=== PATIENT | female | born 1980 | race Caucasian/White ===

== ENCOUNTER 2021-06-11 12:47 | Emergency (ER) | payer MEDICAID ==
[2021-06-11] MEDS ORDERED: predniSONE 20 MG Tab PO ONE (13:55)
[2021-06-11] MEDS ORDERED: Albuterol 8 GM Inhaler INH ONE (14:00)
--- NOTE | 2021-06-11 14:26 | EDM.PDOC ---
ED HPI GENERAL MEDICAL PROBLEM - General Chief Complaint: Gastrointestinal Problem Stated Complaint: COVID SYMPTOMS Time Seen by Provider: 06/11/21 13:45 - History of Present Illness INITIAL COMMENTS - FREE TEXT/NARRATIVE: Patient presents to the emergency department complaining of several days of cough and runny nose and fever with vomiting diarrhea and body aches. She noticed today that she lost smell and taste. Patient is not vaccinated against Covid. No exacerbating relieving factors. Patient does have a history of COPD and is having some shortness of breath some chest tightness Headache Pain Score (Numeric/FACES): 9 - Related Data Allergies Allergy/AdvReac Type Severity Reaction Status Date / Time Penicillins Allergy Itching Verified 06/11/21 13:37 Home Meds: Home Meds Albuterol Sulfate [Albuterol Sulfate HFA] 8.5 gm INH Q4HR PRN #1 dispenser 06/11/21 [Rx] predniSONE [Prednisone] 50 mg PO DAILY #5 tablet 06/11/21 [Rx] Past Medical History Respiratory History: Reports: COPD Other CERTIFIED MEDICAL ASST History: Social & Family History - Tobacco Use Second Hand Smoke Exposure: No - Caffeine Use Caffeine Use: Reports: None - Recreational Drug Use Recreational Drug Use: No ED ROS GENERAL - Review of Systems Review Of Systems: See Below Constitutional: Denies: Fever Respiratory: Reports: Shortness of Breath, Cough Cardiovascular: Reports: Chest Pain GI/Abdominal: Reports: Diarrhea, Vomiting Musculoskeletal: Reports: Muscle Pain Skin: Denies: Rash Neurological: Reports: No Symptoms ED EXAM, GENERAL - Physical Exam Exam: See Below Free Text/Narrative:: CONSTITUTIONAL: well appearing in no acute distress SKIN: Warm, dry, and intact without rash HENT: Normocephalic, atraumatic, PULMONARY: Bilateral wheeze with prolonged respiratory phase CARDIOVASCULAR: regular rate, No murmur, rubs, or gallops GASTROINTESTINAL: soft, nondistended, nontender NEUROLOGIC: normal speech, II-XII intact. light touch/5/5 power equal and symmetric in upper and lower extremities without deficit MUSCULOSKELETAL: no gross deformities, atraumatic PSYCHIATRIC: normal mood and affect #1 Interpretation Time: 14:24 EKG Interpretation Comments: EKG: NSR, nonspecific ST/T changes, Rate -63 Course - Vital Signs Text/Narrative:: differential Diagnosis: Covid, COPD, PE, ACS, other Patient presents with shortness of breath fever and body aches and is Covid positive. Mild wheeze. Breathing treatments and steroids given. Patient candidate for Regeneron and thus we will set her up with our infusion center. Otherwise supportive care with return precautions and PCP follow-up Last Recorded V/S: Last Vital Signs Temp 36.7 C 06/11/21 13:33 Pulse 68 06/11/21 14:16 Resp 17 06/11/21 14:16 BP 172/112 H 06/11/21 14:16 Pulse Ox 98 06/11/21 14:16 - Orders/Labs/Meds Labs: Laboratory Tests 06/11/21 06/11/21 06/11/21 Range/Units 14:01 14:13 14:13 WBC 4.90 (4.0-11.0) K/uL RBC 4.79 (4.30-5.90) M/uL Hgb 13.7 (12.0-16.0) g/dL Hct 40.1 (36.0-46.0) % MCV 83.7 (80.0-98.0) fL MCH 28.6 (27.0-32.0) pg MCHC 34.2 (31.0-37.0) g/dL RDW Std Deviation 42.0 (28.0-62.0) fl RDW Coeff of Get 14 (11.0-15.0) % Plt Count 235 (150-400) K/uL MPV 10.90 (7.40-12.00) fL Neut % (Auto) 62.7 (48.0-80.0) % Lymph % (Auto) 25.3 (16.0-40.0) % [place] % (Auto) 10.6 (0.0-15.0) % Eos % (Auto) 1.2 (0.0-7.0) % Baso % (Auto) 0.2 (0.0-1.5) % Neut # (Auto) 3.1 (1.4-5.7) K/uL Lymph # (Auto) 1.2 (0.6-2.4) K/uL [place] # (Auto) 0.5 (0.0-0.8) K/uL Eos # (Auto) 0.1 (0.0-0.7) K/uL Baso # (Auto) 0.0 (0.0-0.1) K/uL Nucleated RBC % 0.0 /100WBC Nucleated RBCs # 0 K/uL Sodium 141 (136-145) mmol/L Potassium 3.8 (3.5-5.1) mmol/L Chloride 106 (98-107) mmol/L Carbon Dioxide 25.7 (21.0-32.0) mmol/L BUN 9 (7.0-18.0) mg/dL Creatinine 0.8 (0.6-1.0) mg/dL Est Cr Clr Drug Dosing 103.11 mL/min Estimated GFR (MDRD) > 60.0 ml/min Glucose 92 (74-106) mg/dL Calcium 8.2 L (8.5-10.1) mg/dL Total Bilirubin 0.2 (0.2-1.0) mg/dL AST 13 L (15-37) IU/L ALT 40 (14-63) IU/L Alkaline Phosphatase 66 (46-116) U/L Troponin I < 0.050 (0.000-0.056) ng/mL B-Natriuretic Peptide (<100) PG/ML Total Protein 7.4 (6.4-8.2) g/dL Albumin 3.4 (3.4-5.0) g/dL Globulin 4.0 (2.6-4.0) g/dL Albumin/Globulin Ratio 0.9 (0.9-1.6) SARS-CoV-2 RNA (CIRILO) POSITIVE H (NEGATIVE) 06/11/21 Range/Units 14:13 WBC (4.0-11.0) K/uL RBC (4.30-5.90) M/uL Hgb (12.0-16.0) g/dL Hct (36.0-46.0) % MCV (80.0-98.0) fL MCH (27.0-32.0) pg MCHC (31.0-37.0) g/dL RDW Std Deviation (28.0-62.0) fl RDW Coeff of Get (11.0-15.0) % Plt Count (150-400) K/uL MPV (7.40-12.00) fL Neut % (Auto) (48.0-80.0) % Lymph % (Auto) (16.0-40.0) % [place] % (Auto) (0.0-15.0) % Eos % (Auto) (0.0-7.0) % Baso % (Auto) (0.0-1.5) % Neut # (Auto) (1.4-5.7) K/uL Lymph # (Auto) (0.6-2.4) K/uL [place] # (Auto) (0.0-0.8) K/uL Eos # (Auto) (0.0-0.7) K/uL Baso # (Auto) (0.0-0.1) K/uL Nucleated RBC % /100WBC Nucleated RBCs # K/uL Sodium (136-145) mmol/L Potassium (3.5-5.1) mmol/L Chloride (98-107) mmol/L Carbon Dioxide (21.0-32.0) mmol/L BUN (7.0-18.0) mg/dL Creatinine (0.6-1.0) mg/dL Est Cr Clr Drug Dosing mL/min Estimated GFR (MDRD) ml/min Glucose (74-106) mg/dL Calcium (8.5-10.1) mg/dL Total Bilirubin (0.2-1.0) mg/dL AST (15-37) IU/L ALT (14-63) IU/L Alkaline Phosphatase (46-116) U/L Troponin I (0.000-0.056) ng/mL B-Natriuretic Peptide 31 (<100) PG/ML Total Protein (6.4-8.2) g/dL Albumin (3.4-5.0) g/dL Globulin (2.6-4.0) g/dL Albumin/Globulin Ratio (0.9-1.6) SARS-CoV-2 RNA (CIRILO) (NEGATIVE) Meds: Medications Discontinued Medications Generic Name Dose Route Start Last Admin Trade Name Freq PRN Reason Stop Dose Admin Albuterol 0 gm 06/11/21 14:00 06/11/21 14:32 Albuterol 8 Gm Inhaler INH 06/11/21 14:01 2 puff ONETIME ONE Administration Prednisone 60 mg 06/11/21 13:55 06/11/21 14:33 Prednisone 20 Mg Tab PO 06/11/21 13:56 60 mg ONETIME ONE Administration Departure - Departure Time of Disposition: 15:56 Disposition: Home, Self-Care 01 Condition: Good Clinical Impression: COVID - Discharge Information Prescriptions: Albuterol Sulfate [Albuterol Sulfate HFA] 8.5 gm INH Q4HR PRN #1 dispenser PRN Reason: Dyspnea predniSONE [Prednisone] 50 mg PO DAILY #5 tablet Instructions: COVID-19: What to Do If You Are Sick- [facility] [place] (11/02/2020) Referrals: PCP,None [Primary Care Provider] - Forms: ED Department Discharge Additional Instructions: You have Covid. Please take steroids as prescribed. Please use albuterol inhaler as needed for shortness of breath. 2 puffs 4 times a day for the next 2 days then as needed thereafter. Please follow-up with the infusion center for your infusion that is called a monoclonal antibody to help fight Covid. Return for any shortness of breath or any change or worsening condition. Sepsis Event Note (ED) - Evaluation Sepsis Screening Result: No Definite Risk - Focused Exam Vital Signs: Vital Signs Temp Pulse Resp BP Pulse Ox 06/11/21 14:16 68 17 172/112 H 98 06/11/21 13:33 36.7 C 69 20 164/113 H 98
[2021-06-11 15:05] LABS: BLOOD UREA NITROGEN,BUN 9 mg/dL (7.0-18.0); CARBON DIOXIDE,CO2 25.7 mmol/L (21.0-32.0); CHLORIDE,CL 106 mmol/L (98-107); GLUCOSE RANDOM 92 mg/dL (74-106); POTASSIUM,K 3.8 mmol/L (3.5-5.1); SODIUM,NA 141 mmol/L (136-145)
--- NOTE | 2021-06-11 15:21 | CR ---
INDICATION: Chest pain. TECHNIQUE: Portable AP chest radiograph. COMPARISON: None available. FINDINGS: Mildly reduced lung volumes. No focal pulmonary opacity, pneumothorax, or pleural effusion definitively identified. Normal cardiac and mediastinal contours. IMPRESSION: Low volume study. No acute cardiopulmonary findings identified. Dictated by Emory Carranza MD @ 06/11/2021 3:20:35 PM Dictated by: Emory Carranza MD @ 06/11/2021 15:20:41 (Electronically Signed)
== END 2021-06-11 16:26 | disposition home or self-care (01) ==
LOC: MW.ED 12:47
DX: U07.1 COVID-19 (principal); J44.9 Chronic obstructive pulmonary disease, unspecified; Z88.0 Allergy status to penicillin
CPT/HCPCS: 36415; 71045; 80053; 83880; 84484; 85025; 87635; 93005; 99284; A9270; U0002

== ENCOUNTER 2021-09-04 15:15 | Emergency (ER) | payer MEDICAID ==
[2021-09-04 16:50] LABS: CORONAVIRUS COVID-19 NAA POSITIVE (NEGATIVE); INFLUENZA A NAA NEGATIVE (NEGATIVE); INFLUENZA B NAA NEGATIVE (NEGATIVE)
[2021-09-04] MEDS ORDERED: Ketorolac 60 MG/2 ML SDV IM ONE (17:03)
[2021-09-04] MEDS ORDERED: Albuterol 8 GM Inhaler INH STA (17:03)
== END 2021-09-04 18:02 | disposition home or self-care (01) ==
LOC: MW.ED 15:15
DX: U07.1 COVID-19 (principal); J44.9 Chronic obstructive pulmonary disease, unspecified; Z88.0 Allergy status to penicillin
CPT/HCPCS: 0240U; 93005; 96372; 99285; A9270; J1885

== ENCOUNTER 2022-12-06 09:42 | Emergency (ER) | payer SELFPAY ==
[2022-12-06] MEDS ORDERED: Dexamethasone 10 MG/ML SDV PO ONE (10:10)
[2022-12-06] MEDS ORDERED: Ondansetron 4 MG Tab.DIS PO ONE (10:11)
== END 2022-12-06 10:48 | disposition home or self-care (01) ==
LOC: MW.ED 09:42
DX: J02.9 Acute pharyngitis, unspecified (principal); J44.9 Chronic obstructive pulmonary disease, unspecified; Z88.0 Allergy status to penicillin
CPT/HCPCS: 99283; A9270; J8540

== ENCOUNTER 2024-03-03 18:34 | Emergency (ER) | payer SELFPAY ==
[2024-03-03] MEDS: Sodium Chloride 0.9% 1,000 ML IV ONE (20:21)
[2024-03-03] MEDS: Albuterol/Ipratropium 3.0-0.5 MG/3 ML Neb Soln NEB ONE (20:21)
[2024-03-03 20:24] LABS: BASOPHILS ABSOLUTE AUTO 0.08 K/uL (0.00-0.20); BASOPHILS PERCENT AUTO 0.7 % (0.0-1.0); EOSINOPHILS ABSOLUTE AUTO 0.29 K/uL (0.00-0.45); EOSINOPHILS PERCENT AUTO 2.5 % (0.0-6.0); HEMATOCRIT 40.6 % (37.0-47.0); HEMOGLOBIN 13.7 g/dL (12.0-16.0); IMMATURE GRAN ABSOLUTE AUTO 0.04 K/uL (0.00-0.05); IMMATURE GRAN PERCENT AUTO 0.3 % (0.0-0.4); LYMPHOCYTES ABSOLUTE AUTO 2.38 K/uL (1.00-4.80); LYMPHOCYTES PERCENT AUTO 20.5 % (24.0-44.0); MEAN CORPUSCULAR HEMOGLOBIN 28.8 pg (28.0-32.0); MEAN CORPUSCULAR HGB CONC 33.7 g/dL (32.0-36.0); MEAN CORPUSCULAR VOLUME 85.3 fL (83.0-99.0); MEAN PLATELET VOLUME 10.4 fL (9.4-12.3); MONOCYTES ABSOLUTE AUTO 0.86 K/uL (0.00-0.80); MONOCYTES PERCENT AUTO 7.4 % (0.0-8.0); NEUTROPHILS ABSOLUTE AUTO 7.94 K/uL (1.80-7.70); NEUTROPHILS PERCENT AUTO 68.6 % (41.0-71.0); PLATELET COUNT,PLT 388 K/uL (150-400); RED BLOOD CELL COUNT 4.76 M/uL (4.10-5.30); WHITE BLOOD CELL COUNT,WBC 11.59 K/uL (3.9-11.3)
[2024-03-03 20:24] LABS: BILIRUBIN,URINE NEGATIVE (NEGATIVE); COLOR,URINE YELLOW; GLUCOSE,URINE NEGATIVE (NEGATIVE); KETONES,URINE NEGATIVE (NEGATIVE); LEUKOCYTE ESTERASE,URINE MODERATE (NEGATIVE); NITRITE,URINE NEGATIVE (NEGATIVE); OCCULT BLOOD,URINE MODERATE (NEGATIVE); PROTEIN,URINE NEGATIVE (NEGATIVE); UROBILINOGEN,URINE 0.2 EU/dL (<2.0)
[2024-03-03 20:26] LABS: APPEARANCE,URINE HAZY
[2024-03-03 20:37] LABS: ALANINE AMINOTRANSFERASE,ALT 40 IU/L (14-63); ALBUMIN 3.8 g/dL (3.4-5.0); ALKALINE PHOSPHATASE 109 U/L (46-116); ASPARTATE AMNIOTRANSFERASE,AST 14 IU/L (15-37); BILIRUBIN TOTAL 0.2 mg/dL (0.2-1.0); BLOOD UREA NITROGEN,BUN 14 mg/dL (7.0-18.0); CARBON DIOXIDE,CO2 25.4 mmol/L (21.0-32.0); CHLORIDE,CL 104 mmol/L (98-107); CREATININE 0.8 mg/dL (0.6-1.0); EST CRCL DRUG DOSING (CG) 93.35 mL/min; GLUCOSE RANDOM 102 mg/dL (74-106); LIPASE 24 U/L (16-77); MAGNESIUM 1.8 mg/dL (1.8-2.4); POTASSIUM,K 3.9 mmol/L (3.5-5.1); PROTEIN TOTAL,TP 7.6 g/dL (6.4-8.2); SODIUM,NA 138 mmol/L (136-145)
[2024-03-03 20:38] LABS: INR 0.96 (0.86-1.11); PTT,PARTIAL THROMBOPLSTIN TIME 29.9 SEC (23.9-30.7)
[2024-03-03 20:40] LABS: ESTIMATED GFR 95 mL/min (>60)
[2024-03-03 20:59] LABS: EPITHELIAL CELLS,URINE MODERATE (NONE-FEW); RBC,URINE 0-2 (0-2/HPF)
[2024-03-03 21:00] LABS: BACTERIA,URINE 1+ (NEGATIVE); TRICHOMONAS,URINE PRESENT (NEGATIVE)
[2024-03-03 21:01] LABS: CORONAVIRUS COVID-19 NAA NEGATIVE (NEGATIVE); INFLUENZA A NAA NEGATIVE (NEGATIVE); INFLUENZA B NAA NEGATIVE (NEGATIVE); RESPIRATORY SYNCYTIAL VIR NAA NEGATIVE (NEGATIVE)
[2024-03-03] MEDS: Albuterol 8 GM Inhaler INH STA (22:03)
[2024-03-03] MEDS: cefTRIAXone 1 GM in Sodium Chloride 0.9% 50 ML IV ONE (22:03)
[2024-03-03] MEDS: methylPREDNISolone Sodium Succinate 125 MG/2 ML SDV IVPUSH ONE (22:03)
== END 2024-03-03 22:45 | disposition home or self-care (01) ==
LOC: MW.ED 18:34
DX: J18.9 Pneumonia, unspecified organism (principal); N39.0 Urinary tract infection, site not specified; A59.9 Trichomoniasis, unspecified; F17.210 Nicotine dependence, cigarettes, uncomplicated; Z75.8 Other problems related to medical facilities and other health care; Z88.2 Allergy status to sulfonamides; Z79.899 Other long term (current) drug therapy; Z86.16 Personal history of COVID-19
CPT/HCPCS: 0241U; 36415; 71046; 80053; 81001; 83690; 83735; 84484; 85025; 85379; 85610; 85730; 87086; 93005; 96361; 96365; 96375; 99284; A9270; J0696; J2919; J3490; J7030; J7620-GY

== ENCOUNTER 2024-11-03 14:40 | Emergency (ER) | payer SELFPAY ==
[2024-11-03] MEDS: Ketorolac 30 MG/ML SDV IM ONE (16:24)
[2024-11-03] MEDS: Lidocaine 4% Patch TOP PRN (16:27)
[2024-11-03] MEDS: Albuterol 8 GM Inhaler INH ONE (16:33)
== END 2024-11-03 16:44 | disposition home or self-care (01) ==
LOC: MW.ED 14:40
DX: S29.9XXA Unspecified injury of thorax, initial encounter (principal); J44.9 Chronic obstructive pulmonary disease, unspecified; Z76.0 Encounter for issue of repeat prescription; Z86.16 Personal history of COVID-19; Z88.0 Allergy status to penicillin; Z75.8 Other problems related to medical facilities and other health care; W01.198A Fall on same level from slipping, tripping and stumbling with subsequent striking against other object, initial encounter; Y93.01 Activity, walking, marching and hiking
CPT/HCPCS: 71046; 96372; 99285; A9270; J1885; 99283